=== PATIENT | female | born 2000 | race Caucasian/White ===

== ENCOUNTER 2023-09-27 06:18 | Outpatient (CLI) | payer BC, MEDICAID ==
[~2023-09-27] VITALS: Ht 167.6 cm; Wt 100.8 kg
[2023-09-27] MEDS ORDERED: PRIL40 PO (06:58)
[2023-09-27] MEDS ORDERED: TOPROL XL 50MG50 MG PO (06:58)
[2023-09-27] MEDS ORDERED: PRENATAL TABLET PO (06:59)
[2023-09-27] MEDS ORDERED: LR 1,000 ML IV PRN (07:00)
[2023-09-27] MEDS ORDERED: REGLAN 10MG10 MG/TAB (07:00)
--- NOTE | 2023-09-27 07:00 | NUR ---
PT AMBULATES ONTO THE UNIT WITH SIGNIFICANT OTHER WITH REPORTS OF LAMONTE EVERY 2-3 MINUTES.PT DENIES LOF/VB.PT REPORTS POSITIVE MOVEMENT.EFM AND TOCO TRACING CATEGORY 1 LAMONTE EVERY 3-4 MINUTES.POC AND EDUCATION REVIEWED WITH PT AND GUEST.PT VERBALIZES UNDERSTANDING.
[2023-09-27 07:30] VITALS: BP 133/89; PULSE 118; TEMP 99.1
== END 2023-09-27 08:45 | disposition home or self-care (01) ==
LOC: LDRO 06:18
DX: Z34.93 Encounter for supervision of normal pregnancy, unspecified, third trimester (principal); Z3A.41 41 weeks gestation of pregnancy

== ENCOUNTER 2023-09-29 18:20 | Inpatient (IN) | payer BC, MEDICAID ==
[~2023-09-29] VITALS: Ht 167.6 cm; Wt 100.5 kg
[2023-09-29] VITALS (17 sets, daily range): BP systolic 120–143; BP diastolic 69–95; PULSE 118–139; TEMP 98.2–98.3
[~2023-09-29 18:20] MED LIST: PRENATAL TABLET PO; PRIL40 PO; REGLAN 10MG10 MG/TAB; TOPROL XL 50MG50 MG PO
--- NOTE | 2023-09-29 18:20 | NUR ---
PATIENT ARIVED TO UNIT VIA WHEELCHAIR. STATES HER WATER BROKE AROUND 1730 AND IT HAD A YELLOWISH COLOR. DENIES VAGINAL BLEEDING. STATES HER CONTRACTIONS ARE EVERY 2-3 MINUTES. AMNIOSWAB POSITIVE. SVE NOTED. EFMX2
[2023-09-29] MEDS ORDERED: LR 1,000 ML IV PRN (18:30)
[2023-09-29] MEDS ORDERED: ceFAZolin 2 G in Water For Injection,Sterile 20 ML IV ONE (19:00)
[2023-09-29] MEDS ORDERED: LR & Oxytocin 500 ML IV SCH (19:00)
[2023-09-29] MEDS ORDERED: LR 1,000 ML IV SCH (19:00)
[2023-09-29] MEDS ORDERED: NS 10 ML IV ONE (20:39)
[2023-09-29] MEDS ORDERED: Phenylephrine 10 MG/ML VIAL ONE (20:39)
--- NOTE | 2023-09-29 20:55 | NUR ---
2039- PATIENT ASSISTED TO EDGE OF BED. PULSE OX APPLIED. DIFFICULTY TRACING BABY HEART RATE DUE TO MATERNAL POSITIONING. 2042- ROBERT DRAFTING SUPERVISOR AT BEDSIDE. EXPLAINS PROCEDURE AND RISKS OF EPIDURAL 2046- SINGLE SHOT ADMINISTERED BY ROBERT DRAFTING SUPERVISOR. 2051- PATIENT REPOSITIONED TO SEMIFOWLERS. PLAN OF CARE EXPLAINED TO PATIENT AND FAMILY. QUESTIONS INVITED AND ANSWERED.
[2023-09-29] MEDS ORDERED: diphenhydrAMINE 50 MG/ML 1 ML VIAL IV PRN (21:00)
[2023-09-29] MEDS ORDERED: diphenhydrAMINE 25 MG CAP PO PRN (21:00)
[2023-09-29] MEDS ORDERED: ROPivacaine PF 0.2% 200 ML IV ONE (21:00)
[2023-09-29] MEDS ORDERED: Naloxone 0.4 MG/ML VIAL IV PRN (21:00)
[2023-09-29] MEDS ORDERED: Ondansetron 4 MG/2 ML VIAL IV PRN (21:00)
[2023-09-29 21:04] LABS: BASO % 0.3 % (0.0-2.0); EOS % 0.2 % (0.0-4.0); GRAN # 10.9 K/mm3 (1.4-6.5); GRAN % 80.8 % (42.2-75.2); HEMOGLOBIN 10.8 g/dl (12.5-16.0); LYMPH # 1.6 K/mm3 (1.2-3.4); LYMPH % 11.7 % (20.0-51.0); MEAN CELL VOLUME 81 fl (80.0-100.0); MEAN CORPUSCULAR HEMOGLOBIN 25 pg (27-31); MEAN CORPUSCULAR HGB CONC 31 g/dl (33.0-37.0); MEAN PLATELET VOLUME 10.8 fl (7.4-10.4); MONO # 0.9 K/mm3 (0.1-0.6); MONO % 6.6 % (1.7-9.3); PLATELET COUNT 336 K/mm3 (130-400); RED BLOOD COUNT 4.26 M/mm3 (4.10-5.30); REDCELL DISTRIBUTION WIDTH-CV 15.4 % (11.5-14.5)
[2023-09-29 21:15] LABS: HEMATOCRIT 34.4 % (37.0-47.0)
[2023-09-30] VITALS (12 sets, daily range): BP systolic 109–141; BP diastolic 61–87; PULSE 76–150; TEMP 98–98.5
--- NOTE | 2023-09-30 | NUR ---
2304- PATIENT SVE COMPLETE/+2 2310- TOPETE CATHETER REMOVED. PATIENT EDUCATED ON PROPER PUSHING EFFORTS. QUESTIONS INVITED AND ANSWERED. 2314- PATIENT BEGINS COACHED PUSHING WITH CONTRACTIONS. 2344- DR. JARRELL AT BEDSIDE. BED BROKEN DOWN FOR DELIVERY. 235- SPONTANEOUS VAGINAL DELIVERY OF VIABLE BABY BOY. NUCHAL X1 NOTED. CORD CLAMPED BY AND CUT BY FOB. BABY TO MOTHER ABDOMEN. DRIED AND STIMULATED. BABY CARES ASSUMED BY Calista BETTS RN. 2355- SPONTANEOUS DELIVERY OF INTACT PLACENTA THROUGH 1ST DEGREE LACERATION. STARTED PITOCIN AT 333ML/HR PER PROTOCOL. DR. JARRELL BEGINS REPAIR. 0000- RECOVERY STARTED.
[2023-09-30] MEDS ORDERED: Magnes Hydrox (MOM) 80 MG/ML 30 ML CUP PO PRN (00:15)
[2023-09-30] MEDS ORDERED: Loratadine 10 MG TAB PO PRN (00:15)
[2023-09-30] MEDS ORDERED: oxyCODONE 5 MG TAB PO PRN (00:45)
[2023-09-30] MEDS ORDERED: Phenylephrine/Mineral Oil/Petrolatum 57 GM TUBE RC PRN (00:45)
[2023-09-30] MEDS ORDERED: Ibuprofen 800 MG TAB PO SCH (00:45)
[2023-09-30] MEDS ORDERED: Witch Hazel 50% Pads Bulk TUB TP PRN (00:45)
[2023-09-30] MEDS ORDERED: Naloxone 0.4 MG/ML VIAL IV PRN (00:45)
[2023-09-30] MEDS ORDERED: Mag/Al Hydrox/Simeth Susp 30 ML CUP PO PRN (00:45)
[2023-09-30] MEDS ORDERED: Acetaminophen 500 MG TAB PO SCH (00:45)
[2023-09-30] MEDS ORDERED: Measles/Mumps/Rubella Virus Vaccine Live w Diluent 0.5 ML VIAL SQ SCH (00:45)
--- NOTE | 2023-09-30 02:30 | NUR ---
0215- PATIENT ABLE TO LIFT BILATERAL LOWER EXTREMITIES. PATIENT SITTING ON EDGE OF BED. DENIES FEELING LIGHT HEADED. EPIDURAL CATHETER REMOVED WITH TIP INTACT. 0220- PATIENT AMBULATORY TO RESTROOM FOLLOWING DELIVERY. PERICARE PROVIDED. HOSPITAL GOWN CHANGED. PATIENT ABLE TO VOID WITHOUT DIFFICULTY. UNDERWEAR AND PAD ON. 0230- PATIENT AMBULATORY TO ROOM. PATIENT AND ORIENTED TO ROOM. PLAN OF CARE EXPLAINED. QUESTIONS INVITED AND ANSWERED.
[2023-09-30] MEDS ORDERED: ceFAZolin 1 G in Water For Injection,Sterile 10 ML IV SCH (03:00)
[2023-09-30] MEDS ORDERED: MOTRIN 800800 MG/TAB PO (05:51)
[2023-09-30] MEDS ORDERED: Sennosides/Docusate 8.6-50 MG TAB PO SCH (08:00)
--- NOTE | 2023-09-30 10:24 | NUR ---
Initial visit; Parents thanked Chemical Research Engineer for offering congratulations and God's blessings for the of their son. Chemical Research Engineer thanked family for choosing [facility].
[2023-09-30] MEDS ORDERED: traZODone 50 MG TAB PO PRN (21:00)
[2023-10-01 08:00] VITALS: BP 137/84; PULSE 94; TEMP 97.8
--- NOTE | 2023-10-01 11:00 | NUR ---
DISCUSSED DC INSTRUCTIONS. PT AGREES.
== END 2023-10-01 11:00 | disposition home or self-care (01) | DRG 560 ==
LOC: LDRO 18:20 → LDR 18:56 → OB 18:56
PROVIDERS: Obstetrics & Gynecology; ADMIT Obstetrics & Gynecology
PROC: 10E0XZZ Delivery of Products of Conception, External Approach (ICD-10-PCS; principal; 2023-09-29)
PROC: 0UQGXZZ Repair Vagina, External Approach (ICD-10-PCS; 2023-09-29)
DX: O48.0 Post-term pregnancy (principal); Z37.0 Single live birth; O71.4 Obstetric high vaginal laceration alone; O99.344 Other mental disorders complicating childbirth; F41.9 Anxiety disorder, unspecified; O99.892 Other specified diseases and conditions complicating childbirth; O99.214 Obesity complicating childbirth; O99.824 Streptococcus B carrier state complicating childbirth; R00.0 Tachycardia, unspecified; O69.81X0 Labor and delivery complicated by cord around neck, without compression, not applicable or unspecified; Z3A.41 41 weeks gestation of pregnancy
CPT/HCPCS: J0690; J2371; J2590; J2795; J7120